=== PATIENT | male | born 1940 | race Caucasian/White ===

== ENCOUNTER → 2017-09-28 | Outpatient (CLI) | payer MEDICARE, BC ==
[~2017-09-28] MED LIST: ALBU0.63 NEB; HYDR-3534 PO; LEVO.05 PO; LYRI150C PO; PRED-503 PO; TAMS5CAP PO; VENTAER INH
--- NOTE | 2017-09-29 09:37 | RSPPFT ---
DATE OF PROCEDURE: 09/28/17 COMMENTS: Spirometry shows FVC is 2.1 at 50% of predicted, FEV1 of 1.7 at 53%, FEV1/FVC ratio is normal. Flow is decreased at FEF 25, FEF 50, FEF 75 and FEF 25-75. There is no response after acutely inhaled bronchodilator treatment. TLC is decreased. Diffusion capacity is normal when corrected for lung volumes. Flow volume loop indicates a restrictive pattern. IMPRESSION: 1. Moderately severe restrictive lung disease. 2. No response after bronchodilator treatment. 3. Decreased lung volumes. 4. Diffusion capacity is normal when corrected for lung volume. 5. Blood gases show normal oxygenation on room air.
== END ==
LOC: PHRSP 09:51
PROVIDERS: ATTEND Specialist
DX: J44.9 Chronic obstructive pulmonary disease, unspecified (principal)
CPT/HCPCS: 94060; 94726; 94729

== ENCOUNTER 2018-02-15 06:22 | Day surgery (SDC) | payer MEDICARE, BC ==
[~2018-02-15] VITALS: Ht 180.3 cm; Wt 97.0 kg
[2018-02-15] MEDS ORDERED: IOHEXOL 350 MG/ML 100 ML BTL (for Cath Lab) OTHER ONE (06:23)
[2018-02-15] MEDS ORDERED: NS 1000 ML @100 MLS/HR IV SCH (06:45)
[2018-02-15] MEDS ORDERED: diphenhydrAMINE HCL 50 MG CAP PO SCH (06:45)
[2018-02-15] MEDS ORDERED: ASPIRIN 325 MG TAB PO SCH (06:45)
[2018-02-15 06:59] VITALS: BP 157/76; PULSE 74; RESP 16; TEMP 98; O2SAT 96
[2018-02-15 07:10] LABS: BASOPHIL # 0.1 TH/MM3 (0-0.2); BASOPHIL % 1.2 % (0.0-2.0); EOSINOPHIL % 12.8 % (0.0-4.0); HEMATOCRIT 40.4 % (39.0-51.0); HEMOGLOBIN 13.7 GM/DL (13.0-17.0); LYMPH % 26.1 % (9.0-44.0); LYMPHOCYTE # 2.1 TH/MM3 (1.0-4.8); MEAN CELL VOLUME 93.5 FL (80.0-100.0); MEAN CORPUSCULAR HEMOGLOBIN 31.6 PG (27.0-34.0); MEAN CORPUSCULAR HGB CONC 33.8 % (32.0-36.0); MEAN PLATELET VOLUME 10.9 FL (7.0-11.0); MONOCYTE # 0.8 TH/MM3 (0-0.9); NEUT % 49.9 % (16.0-70.0); PLATELET COUNT 166 TH/MM3 (150-450); RED BLOOD COUNT 4.32 MIL/MM3 (4.50-5.90); RED CELL DISTRIBUTION WIDTH 13.9 % (11.6-17.2)
[2018-02-15] MEDS ORDERED: ALEN1TAB48 PO (07:20)
[2018-02-15] MEDS ORDERED: ACCU10TA2 PO (07:20)
[2018-02-15] MEDS ORDERED: LEVO.1 PO (07:21)
[2018-02-15] MEDS ORDERED: ISOS60TA PO (07:21)
[2018-02-15] MEDS ORDERED: HYDR-3580 PO (07:21)
[2018-02-15] MEDS ORDERED: TAMS5CAP PO (07:21)
[2018-02-15] MEDS ORDERED: METO1TAB42 PO (07:21)
[2018-02-15] MEDS ORDERED: PRAV40TA2 PO (07:21)
[2018-02-15] MEDS ORDERED: OMEGCAP PO (07:21)
[2018-02-15] MEDS ORDERED: NITR0.4S SL (07:21)
[2018-02-15] MEDS ORDERED: COQ-100C5 PO (07:21)
[2018-02-15] MEDS ORDERED: CALCTAB19 PO (07:21)
[2018-02-15] MEDS ORDERED: LYRI150C PO (07:21)
[2018-02-15] MEDS ORDERED: ASPI-183 PO (07:21)
[2018-02-15 07:23] LABS: PROTHROMBIN TIME - PATIENT 10.6 SEC (9.8-11.6)
[2018-02-15 07:38] LABS: BICARBONATE 29.8 MEQ/L (21.0-32.0); CALCIUM 8.5 MG/DL (8.5-10.1); CREATININE 0.91 MG/DL (0.60-1.30)
[2018-02-15] MEDS ORDERED: HEPARIN-NS/PF FLUSH BAG 2,000 ML IV FLUSH ONE (08:24)
[2018-02-15] MEDS ORDERED: MIDAZOLAM HCL 2 MG/2 ML VIAL ONE (08:50)
[2018-02-15] MEDS ORDERED: HEPARIN SODIUM - IV 10,000 UNITS/10 ML VIAL ONE (08:57)
[2018-02-15] MEDS ORDERED: BIVALIRUDIN 250 MG VIAL ONE (09:57)
[2018-02-15] MEDS ORDERED: CLOPIDOGREL 300 MG TAB ONE (09:57)
[2018-02-15] MEDS ORDERED: NIFEdipine 10 MG CAP ONE (10:43)
[2018-02-15] MEDS ORDERED: SODIUM CHLOR 0.9% 1000 ML INJ 1,000 ML IV SCH (11:10)
--- NOTE | 2018-02-15 11:10 | CATHPROC ---
[facility] HIS Report Study Information Study Number Admission Scheduled Start Study Start [id number] Feb 15 2018 6:22AM 02/15/2018 Feb 15 2018 8:44AM [place] [facility] Cardiac Catheterization Admit Source Facility Department Other [facility] - Service Operator Physician and Clinical Staff Initial Houston Graham Tree Girdler Angel RN, Luis Felipe Tree GirdlerDandy Russell,RN Recorder Leigh Rivero ,RT(R) ScrIdalia Martinez,RT(R) Procedures Performed Procedure Location (Site) Vessel Name Angiogram LV LV Ventricle Coronary Angiograms LCA Left Coronary Coronary Angiograms RCA Right Coronary Drug Eluting Inflatio LAD Mid Left Coronary IVUS Fem Art (right) Femoral Art L Heart Cath PTCA LAD Mid Left Coronary Wire insertion Fem Art (right) Femoral Art Equipment Time Charge Coordinator Description Size Mfg Part Number Used/Scraped NEGINTERRENCE, VASCULAR CLOSER [id number] 10:38 [employer] FR 6 Used SYSTEM *[id number] TRANSDUCER, TRUWAVE [id number] 08:50 FUENTES ROSENBAUM * Used W/STOCKCOCK *[id number] *[id number] [id number] *[id number] PIGTAIL ANG. 145 INFINITI [id number] CATHETER *[id number] *[id number] *[id number] 08:50 MEDLINE IND[employer]RIES PACK, CCL CUSTOM * Used *[id number] 08:50 plista PACER PEN, SKIN DUAL W/ RULER * Used *[id number] 10:05 MEDTRONIC BALLOON, 2.0 X 10MM EUPHORA 10MM Used *[id number] 10:18 MEDTRONIC STENT, 3.0 15MM EMMA 3.0 15MM Used *[id number] 09:57 [employer] MEDICAL 30 BETTYE INDEFLATOR Used *[id number] 08:50 [employer] MEDICAL SHEATH, FR6.5 PRELUDE 11CM FR 6.5 038ACT Used *[id number] 08:50 [employer] MEDICAL WIRE, 3MMJ .035 180CM 180CM Used *[id number] 08:50 NAMIC MANIFOLD, 4 PORT * Used *[id number] 09:55 NAMIC TUBING, HIGH PRESSURE 20" 20" Used *[id number] 08:50 NYCOMED OMNIPAQUE, 350 MG, 150ML 150ML [id number] Used [id number] 08:50 ALMAGUER MEDICAL BLANKET,WARM AIR CCL * Used *[id number] CATHETER, TANANA EYE GRAND RONDE TRIBES [id number] 10:15 [employer] Used IMAGING *[id number] Equipment Model, Serial, Lot Number and Expiration Data Description Model Number Serial Number Lot Number Expiration Date STENT, 3.0 15MM EMMA [id number] 10-04-2019 History: Current Medications Medication Dosage/Unit Route Frequency Last Date/Time Taken Statins (any) Beta Augustin ASA FLOMAX LYRICA NTG SL Synthroid History: Allergies Allergy Reaction penicillin G History: Risk Factors Family History of Hypertension Dyslipidemia Previous VT Previous Heart Failure Premature CAD Yes Yes No No No Prior Valve Prior PCI Prior CABG Surgery No No No Cerebrovascular Peripheral Artery Chronic Lung On Dialysis Diabetes Disease Disease Disease No No Yes Yes No History: Stress Tests Stress or Imaging Studies Performed Yes Standard Exercise Stress Test No Stress Echo No Stress Test SPECT Stress Test SPECT Result Stress Test SPECT Ischemia Risk/Extent Yes Positive High Stress Test CMR No Cardiac CTA Coronary Calcium Score No No History: Other Disease Selection Items CAD HTN History: Other Current Smoker No Labs Hgb (g/dl) Hct (%) WBC (l/cumm) Platelets (thousands) 11.60-17.00 35.00-51.00 4.00-11.00 150.00-450.00 13.7 40.7 8 166 Glucose (mg/dl) BUN (mg/dl) Creatinine (mg/dl) BUN:Creatinine (1:x) 74.00-106.00 7.00-18.00 0.50-1.30 10.00-20.00 98 11 0.9 12.2 Na (meq/l) K (meq/l) 136.00-145.00 3.50-5.10 142 3.6 INR (PTT:PT) 0.90-1.10 1 CPK-MB (ng/ML) 0.50-3.60 Not Drawn Medication Medication Total Dose (Bolus/Oral) Medication Total Dosage/Unit 1% XYLOCAINE 20 mL ANGIOMAX BOLUS 14.5 mL/hr FENTANYL 50 mcg HEPARIN 6000 units NTG (IC) 450 mcg OXYGEN 2 l/min PLAVIX 600 mg PROCARDIA 5 mg VERSED 2 mg Medications (Bolus/Oral) Medication Time Given Dosage/Unit Administered By Reason VERSED 02/15/2018 9:38:20 AM 2 mg Luis Felipe Ortiz RN 2 mg VERSED given in lab by Luis Felipe Ortiz RN in Left Antecubital via Peripheral IV. Ordered by Houston Fabian. 1% XYLOCAINE 02/15/2018 9:38:43 AM 20 mL Houston Fabian 20 mL 1% XYLOCAINE given in lab by Houston Fabian in Right Groin via Subcutaneous. Ordered by Houston Fabian. FENTANYL 02/15/2018 9:39:36 AM 50 mcg Luis Felipe Ortiz RN 50 mcg FENTANYL given in lab by Luis Felipe Ortiz RN in Left Antecubital via Peripheral IV. Ordered by Houston Schaeffer. HEPARIN 02/15/2018 9:41:41 AM 6000 units Houston Fabian 6000 units HEPARIN given in lab by Houston Fabian in Right Groin via Peripheral IV. Ordered by Houston Fabian. OXYGEN 02/15/2018 9:45:00 AM 2 l/min Luis Felipe Ortiz RN 2 l/min OXYGEN given in lab by Luis Felipe Ortiz RN via Nasal. Ordered by Houston Fabian. NTG (IC) 02/15/2018 9:45:31 AM 150 mcg Houston Fabian 150 mcg NTG (IC) given in lab by Houston Fabian via Intra-coronary. Ordered by Houston Fabian. PLAVIX 02/15/2018 9:57:53 AM 600 mg Luis Felipe Ortiz RN 600 mg PLAVIX given in lab by Luis Felipe Ortiz RN via Oral. Ordered by Houston Fabian. ANGIOMAX BOLUS 02/15/2018 10:03:06 AM 14.5 mL/hr Luis Felipe Ortiz RN 14.5 mL/hr ANGIOMAX BOLUS given in lab by Luis Felipe Ortiz RN via Peripheral IV. Pump/Drip Flow = 0 ml/hr using [Solution Name]. Ordered by Houston Fabian. NTG (IC) 02/15/2018 10:23:49 AM 150 mcg Houston Fabian 150 mcg NTG (IC) given in lab by Houston Fabian via Intra-coronary. Ordered by Houston Fabian. NTG (IC) 02/15/2018 10:31:41 AM 150 mcg Houston Fabian 150 mcg NTG (IC) given in lab by Houston Fabian via Intra-coronary. Ordered by Houston Fabian. PROCARDIA 02/15/2018 10:46:36 AM 5 mg Luis Felipe Ortiz RN 5 mg PROCARDIA given in lab by Luis Felipe Ortiz RN via Sublingual. Ordered by Houston Fabian. Medication (Drip) Medication Time Given Dosage/Unit Concentration/Unit Diluent (ml) Solution ANGIOMAX DRIP 02/15/2018 10:05:36 AM 1.753 mg/kg/hr 250 mg 50 NaCl .9 1.753 mg/kg/hr ANGIOMAX DRIP given in lab by Luis Felipe Ortiz RN via Peripheral IV. Pump/Drip Flow = 34 m l/hr using NaCl .9 with a concentration of 250 mg in 50 ml. Ordered by Houston Fabian. ANGIOMAX DRIP 02/15/2018 10:36:37 AM 1.753 mg/kg/hr 250 mg 50 NaCl .9 1.753 mg/kg/hr ANGIOMAX DRIP given in lab by Luis Felipe Ortiz RN via Peripheral IV. Pump/Drip Flow = 34.0 1 ml/hr using NaCl .9 with a concentration of 250 mg in 50 ml. Ordered by Houston Fabian. Discontinued at 02/15/2018 10:42. IV Solutions 02/15/2018 8:47:04 AM 50 mL (IV) NaCl .9 Patient arrived on IV Solutions in Left Antecubital via Peripheral IV. Pump/Drip Flow using NaCl .9. Initial Case Assessment Cardiovascular HR Rhythm NIBP Chest Pain 68 sr 165/87 0 Edema Present Skin color Skin None Normal Warm Dry Circulatory - Right Pulses Dorsalis Pedis Femoral 3 1 Scale (0,1,2,3,4,d) Circulatory - Left Pulses Dorsalis Pedis Femoral 3 1 Scale (0,1,2,3,4,d) Circulatory - Lower Extremities Color Lower Right Color Lower Left Normal Normal Neurological State Oriented to time-place- Alert Moves all extremities person Respiration - General Respiration Rate SpO2 (%) (B/min) 16 97 Final Case Assessment Cardiovascular HR Rhythm NIBP Chest Pain 68 sr 165/87 0 Edema Present Skin color Skin None Normal Warm Dry Circulatory - Right Pulses Dorsalis Pedis Femoral 3 1 Scale (0,1,2,3,4,d) Circulatory - Left Pulses Dorsalis Pedis Femoral 3 1 Scale (0,1,2,3,4,d) Circulatory - Lower Extremities Color Lower Right Color Lower Left Normal Normal Neurological State Oriented to time-place- Alert Moves all extremities person Respiration - General Respiration Rate SpO2 (%) (B/min) 16 97 Chronological Log Time Study Chronological Log 8:42:44 Patient arrived via Bed. 8:42:48 Patient Name, D.O.B, / Armband Verified By R.N. 8:46:52 Consent signed by the physician and the patient and verified by the Service Operator staff. 8:46:53 Pre-op and post- op instructions given; patient acknowledges understanding of instructions. 8:46:53 Verbal Stimulation=2 Physical Stimulation=2 Airway=2 Respiration=2 TOTAL=8. (0=absent, 1=li mited, 2=present) 8:46:58 Patient has been NPO for More than 6Hrs. 8:47:00 Skin Breakdown- rash right groin 8:47:01 Patient Warmer Placed on the Table. 8:47:03 Efren Prominences Protected 8:47:04 A # 20 IV was noted in the Antecubital (left). Grade = 0 8:47:04 Patient arrived on IV Solutions in Left Antecubital via Peripheral IV. Pump/Drip Flow using NaCl .9. 8:47:05 History and physical on the chart or being dictated. Assessment: Initial Case, HR=68 BPM, Rhythm=sr, FXOZ=630/87 mmhg, Chest Pain=0, Edema=None, [place] r=Normal, Skin = Warm, Dry Right Pulses: Michael Ped=3, Femoral=1 Left Pulses: Michael Ped=3, Femoral=1 8:47:08 Lower Right Extremities: Color=Normal Lower Left Extremities: Color=Normal Neurological: State=Alert, Ox3, REECE Respiration: Resp=16 B/min, SpO2=97 % Vitals capture started with the following parameters, Patient=Adult, Interval=5 min, Initial Pre mqvqs=967 mmHg, 8:47:12 Deflation Rate=5 mmHg, Cuff placed on Left Arm 8:48:19 HR=67 bpm, QNCP=351/87 mmhg, SpO2=97.0 %, Pain=0, Shannon=8, Melissa=2 8:52:55 Bilateral groins prepped with 2% chlorhexidine, and draped after a 3 minute waiting time. 8:52:56 HR=69 bpm, CGCJ=216/87 mmhg, SpO2=97.0 %, Resp=13 B/min, Pain=0, Shannon=8, Melissa=2 8:55:56 Reference ECG taken 8:57:57 HR=64 bpm, CZAS=062/87 mmhg, SpO2=98.0 %, Resp=10 B/min, Pain=0, Shannon=8, Melissa=2 8:59:10 MD paged 9:02:42 Pressure channel 1 zeroed. 9:02:58 HR=62 bpm, ALFI=802/89 mmhg, SpO2=96.0 %, Resp=19 B/min, Pain=0, Shannon=8, Melissa=2 9:08:48 HR=64 bpm, YZGD=358/87 mmhg, SpO2=95.0 %, Resp=15 B/min, Pain=0, Shannon=8, Melissa=2 9:12:56 HR=78 bpm, PDOQ=693/80 mmhg, SpO2=95.0 %, Resp=26 B/min, Pain=0, Shannon=8, Melissa=2 9:16:21 MD responded. ETA 15 minutes 9:17:59 HR=64 bpm, RYGF=091/89 mmhg, SpO2=97.0 %, Resp=14 B/min, Pain=0, Shannon=8, Melissa=2 9:23:00 HR=60 bpm, UEIB=987/79 mmhg, SpO2=96.0 %, Resp=16 B/min, Pain=0, Shannon=8, Melissa=2 9:27:01 MD arrived. 9:28:01 HR=66 bpm, VPWP=884/88 mmhg, SpO2=93.0 %, Resp=24 B/min, Pain=0, Shannon=8, Melissa=2 9:33:03 HR=66 bpm, OQAQ=613/84 mmhg, SpO2=93.0 %, Resp=20 B/min, Pain=0, Shannon=8, Melissa=2 Time Out. Correct patient, correct procedure, correct physician, power injector loaded with cont rast with surgical team 9:33:30 present. Time Out Concurred by MD and individual staff in procedure. 9:33:55 Case Start 9:38:04 HR=67 bpm, CPSA=896/89 mmhg, SpO2=95.0 %, Resp=16 B/min, Pain=0, Shannon=8, Melissa=2 9:38:20 2 mg VERSED given in lab by Luis Felipe Ortiz RN in Left Antecubital via Peripheral IV. Ordered Houston Thomas. 9:38:43 20 mL 1% XYLOCAINE given in lab by Houston Fabian in Right Groin via Subcutaneous. Ordered Houston Thomas. 9:39:36 50 mcg FENTANYL given in lab by Luis Felipe Ortiz RN in Left Antecubital via Peripheral IV. Order ed by Houston Fabian. 9:40:05 Access site was Right Femoral Artery. 9:41:27 A SHEATH, FR6.5 PRELUDE 11CM FR 6.5 was advanced into the Fem Art (right) using the Percutan eous technique. 9:41:41 6000 units HEPARIN given in lab by Houston Fabian in Right Groin via Peripheral IV. Ordered by Houston Fabian. A JL 4.0 INFINITI CATHETER FR 6 was advanced over a wire. OMNIPAQUE, 350 MG, 150ML 150ML was use d for 9:42:45 injections. 9:42:57 HR=63 bpm, BUDM=466/87 mmhg, SpO2=90.0 %, Resp=18 B/min, Pain=0, Shannon=8, Melissa=2 Recorded Pressure: Ao, HR=63, Condition=Condition 1 9:44:28 (Aorta) Ao 144/70/100 9:45:00 2 l/min OXYGEN given in lab by Luis Felipe Ortiz RN via Nasal. Ordered by Houston Fabian. 9:45:12 The LCA was injected and visualized at various angles. OMNIPAQUE, 350 MG, 150ML 150ML used. 9:45:31 150 mcg NTG (IC) given in lab by Houston Fabian via Intra-coronary. Ordered by Dima Fabian 9:47:58 HR=64 bpm, XHPV=508/68 mmhg, SpO2=96.0 %, Resp=15 B/min, Pain=0, Shannon=8, Melissa=2 After removing the current catheter a JR 4.0 INFINITI CATHETER FR 6 was advanced over a WIRE, 3 MMJ .035 180CM 9:48:58 180CM. 9:51:11 The RCA was injected and visualized at various angles. OMNIPAQUE, 350 MG, 150ML 150ML used. 9:52:04 Catheter was removed A PIGTAIL ANG. 145 INFINITI CATHETER FR 6 was advanced over a wire. OMNIPAQUE, 350 MG, 150ML 15 0ML was 9:52:46 used for injections. 9:53:01 HR=59 bpm, SMZL=546/67 mmhg, SpO2=92.0 %, Resp=21 B/min, Pain=0, Shannon=8, Melissa=2 Recorded Pressure: LV, HR=66, Condition=Condition 1 9:53:47 (Left Ventricle) LV 146/5/17 9:55:42 The LV was injected at 10 cc/sec for a total of 28. OMNIPAQUE, 350 MG, 150ML 150ML used. Recorded Pressure: LV, Ao, HR=62, Condition=Condition 1 9:56:53 (Left Ventricle) LV 139/5/15, (Aorta) Ao 140/66/98 9:57:11 Catheter was removed 9:57:53 600 mg PLAVIX given in lab by Luis Felipe Ortiz RN via Oral. Ordered by Houston Fabian. 9:58:00 HR=64 bpm, WOMF=316/85 mmhg, SpO2=96.0 %, Resp=21 B/min, Pain=0, Shannon=8, Melissa=2 A XBLAD 3.5 GUIDE CATHETER FR 6 was advanced over a wire. OMNIPAQUE, 350 MG, 150ML 150ML was ed for 10:00:46 injections. 10:03:01 HR=58 bpm, DXOW=442/79 mmhg, SpO2=96.0 %, Resp=16 B/min, Pain=0, Shannon=8, Melissa=2 14.5 mL/hr ANGIOMAX BOLUS given in lab by Luis Felipe Ortiz RN via Peripheral IV. Pump/Drip Flow = 0 ml/hr using 10:03:06 [Solution Name]. Ordered by Houston Fabian. 10:03:12 A WIRE, ATW MARKER 300CM 300CM was inserted via Fem Art (right). 1.753 mg/kg/hr ANGIOMAX DRIP given in lab by Luis Felipe Ortiz RN via Peripheral IV. Pump/Drip Flow = 34 ml/hr using 10:05:36 NaCl .9 with a concentration of 250 mg in 50 ml. Ordered by Houston Fabian. 10:08:06 HR=59 bpm, YHAA=008/69 mmhg, SpO2=98.0 %, Resp=13 B/min, Pain=0, Shannon=8, Melissa=2 10:09:43 Interventional wire has crossed the lesion A BALLOON, 2.0 X 10MM EUPHORA 10MM was inserted over WIRE, ATW MARKER 300CM 300CM via the Fem A rt 10:10:51 (right). A BALLOON, 2.0 X 10MM EUPHORA 10MM over a WIRE, ATW MARKER 300CM 300CM in the LAD Mid was infla pilar using 10:12:32 a 30 BETTYE INDEFLATOR at 8 bettye for 60 sec. 10:13:03 HR=55 bpm, XOMH=702/73 mmhg, SpO2=95.0 %, Resp=45 B/min, Pain=0, Shannon=8, Melissa=2 A BALLOON, 2.0 X 10MM EUPHORA 10MM over a WIRE, ATW MARKER 300CM 300CM in the LAD Mid was infla pilar using 10:14:22 a 30 BETTYE INDEFLATOR at 8 bettye for 60 sec. 10:15:40 Balloon Removed. A STENT, 3.0 15MM EMMA 3.0 15MM was advanced through a XBLAD 3.5 GUIDE CATHETER FR 6 over a WIR E, ATW 10:17:46 MARKER 300CM 300CM. 10:18:02 HR=57 bpm, LGEA=528/81 mmhg, SpO2=99.0 %, Resp=21 B/min, Pain=0, Shannon=8, Melissa=2 A STENT, 3.0 15MM EMMA 3.0 15MM was deployed using a 30 BETTYE INDEFLATOR at 14 atmospheres for 12 seconds in 10:20:33 the LAD Mid. 10:21:10 Delivery device removed 10:22:24 Activated Clotting Time Drawn 10:23:07 HR=56 bpm, HUIO=795/71 mmhg, SpO2=98.0 %, Resp=37 B/min, Pain=0, Shannon=8, Melissa=2 10:23:49 150 mcg NTG (IC) given in lab by Houston Fabian via Intra-coronary. Ordered by Jesica Fabian af. 10:28:08 HR=60 bpm, XPIU=097/77 mmhg, SpO2=96.0 %, Resp=22 B/min, Pain=0, Shannon=8, Melissa=2 10:29:25 An CATHETER, [employer] IMAGING was advanced through the lesion. Images saved onto IVUS hard drive 10:30:31 IVUS in progress using CATHETER, TANA[employer] IMAGING 10:31:03 IVUS catheter removed 10:31:08 ATW Wire removed 10:31:41 150 mcg NTG (IC) given in lab by Houston Fabian via Intra-coronary. Ordered by Jesica Fabian af. 10:31:45 ACT (Normal Range 90-180) = 342 10:33:01 HR=61 bpm, LIOB=579/73 mmhg, SpO2=99.0 %, Resp=9 B/min, Pain=0, Shannon=8, Melissa=2 10:33:53 Catheter was removed 10:35:20 An injection in the Fem Art (right) was made through the SHEATH, FR6.5 PRELUDE 11CM FR 6.5. 1.753 mg/kg/hr ANGIOMAX DRIP given in lab by Luis Felipe Ortiz RN via Peripheral IV. Pump/Drip Flow = 34.01 ml/hr using 10:36:37 NaCl .9 with a concentration of 250 mg in 50 ml. Ordered by Houston Fabian. Discontinued at 02/15 10:42. 10:36:46 STARCLOSE, VASCULAR CLOSER SYSTEM FR 6 placement in the Fem Art (right) 10:38:47 HR=58 bpm, MZIV=801/86 mmhg, SpO2=94.0 %, Resp=13 B/min, Pain=0, Shannon=8, Melissa=2 10:43:07 HR=62 bpm, SABB=813/93 mmhg, SpO2=95.0 %, Resp=30 B/min, Pain=0, Shannon=8, Melissa=2 10:46:23 Case End Assessment: Final Case, HR=68 BPM, Rhythm=sr, NYOF=696/87 mmhg, Chest Pain=0, Edema=None, Color =Normal, Skin = Warm, Dry Right Pulses: Michael Ped=3, Femoral=1 Left Pulses: Michael Ped=3, Femoral=1 10:46:29 Lower Right Extremities: Color=Normal Lower Left Extremities: Color=Normal Neurological: State=Alert, Ox3, REECE Respiration: Resp=16 B/min, SpO2=97 % 10:46:36 5 mg PROCARDIA given in lab by Luis Felipe Ortiz RN via Sublingual. Ordered by Houston Fabian. 10:46:51 Catheter(s) removed without difficulty 10:46:57 Sterile dressing applied to site 10:46:58 No case complications noted. 10:47:00 Cine recording checked. 10:47:02 Bedside Report will be given. 10:47:13 Implantable Device card placed in patient's chart. 10:47:18 A Left Heart Cath was performed. 10:48:06 HR=60 bpm, SXEJ=190/88 mmhg, SpO2=95.0 %, Resp=18 B/min, Pain=0, Shannon=8, Melissa=2 10:53:03 HR=62 bpm, KEFO=179/84 mmhg, SpO2=92.0 %, Resp=18 B/min, Pain=0, Shannon=8, Melissa=2 10:57:44 Vitals capture stopped. 11:01:11 Patient moved to [facility] End Study - Contrast Media Used In Study Contrast Total Opened (mL) Total Used (mL) Total Wasted (mL) Omnipaque 178 178 0 End Study - Maximum Contrast Load Max Contrast Load (mL) 538.9 End Study - Radiation Exposure Fluoro Time (minutes) 8.8 End Study - Sheaths Sheaths Pulled By Sheath Hold Time (min) Houston Fabian End Study - Patient Disposition Complications Transferred To Interventional Outcome No Critical Care Bed successful
[2018-02-15] MEDS ORDERED: MISC INFORMATION XX ONE (11:15)
[2018-02-15] MEDS ORDERED: ATROPINE SULFATE 1 MG/ML VIAL IV PUSH PRN (11:15)
[2018-02-15] MEDS ORDERED: ACETAMINOPHEN 500 MG CPLT PO PRN (11:15)
[2018-02-15] MEDS ORDERED: ONDANSETRON HCL 4 MG/2 ML VIAL IV PUSH PRN (11:15)
[2018-02-15] MEDS ORDERED: BACITRACIN OINT 0.9 GM PKT TOP ONE (11:15)
[2018-02-15] MEDS ORDERED: SODIUM CHLOR 0.9% 250 ML INJ 250 ML IV PRN (11:15)
[2018-02-15] MEDS ORDERED: ASPI81TA23 PO (11:20)
[2018-02-15] MEDS ORDERED: LISINOPRIL 20 MG TAB PO ONE (11:30)
[2018-02-15] MEDS ORDERED: NITROGLYCERIN 2% OINT 1 GM PACKET TOPICAL ONE (11:45)
[2018-02-15] MEDS ORDERED: CLOPIDOGREL 300 MG TAB PO ONE (11:45)
[2018-02-15] MEDS ORDERED: MIDAZOLAM HCL 2 MG/2 ML VIAL IV ONE (11:45)
--- NOTE | 2018-02-15 11:54 | MA ---
cc: Houston Fabian MD, Gohar S MD DATE: 02/15/2018 PROCEDURES PERFORMED: 1. Left heart catheterization. 2. Coronary arteriogram. 3. Left ventriculogram. 4. Percutaneous transluminal balloon angioplasty of the mid 80% left anterior descending disease followed by stenting using a 3.0 x 15 mm drug-eluted Resolute [place] stent reducing it to -10% angiographically. 5. Intravascular ultrasound evaluation post-stenting. 6. Right femoral arteriogram. 7. Right femoral arteriotomy site closure using a StarClose device. MACHINIST BENCH: Rogelio Fabian MD CLAIM ADJUSTER: Idalia Kyle RT (R) INDICATION: Progressive angina equivalent symptoms and a stress nuclear study showing moderate to severe anterior and lateral wall ischemia with transient ischemic dilatation. Because of the high risk criteria of the stress test and because of his progressive symptoms despite medical therapy, he was advised to proceed with a cardiac catheterization. He had a cardiac catheterization about 5 years ago with borderline significant mid LAD disease that was treated medically at that time; however, he is failing medical therapy and now. EQUIPMENT USED: A 6-Swazi short sheath. A 0.035 J guidewire. A 6-Swazi JL4, JR4 and pigtail diagnostic catheters. A 6-Swazi XBLAD 3.5 guide with no side holes. A 0.014 ATW long marker wire. A 2.0 x 10 Euphora compliant balloon. A 3.0 x 15 drug-eluting Resolute [place] stent. Intravascular ultrasound catheter from [employer]. DESCRIPTION OF PROCEDURE: After obtaining informed consent, the right groin was prepped in the usual sterile fashion, and 15 mL of 1% lidocaine were used for local anesthesia. Using a modified Seldinger technique, the right femoral artery was cannulated and a 6-Swazi short sheath was inserted in the right femoral artery. Using the above-mentioned diagnostic catheters, selective coronary angiograms were performed. This was followed by left ventriculogram performed in the GOSS view at 30 degree angle. This was followed by percutaneous revascularization of the mid LAD, of which a separate description will followup. At the end of the procedure, right femoral system was injected revealing no significant disease, and a StarClose device was applied achieving adequate hemostasis. The patient tolerated the procedure well without acute complication at the time of dictation. CARDIAC CATHETERIZATION FINDINGS: HEMODYNAMICS: Aortic pressure was 140/70 mmHg, mean aortic pressure was 93 mmHg. There was no gradient across the aortic valve. Left ventricular end diastolic pressure was 18 mmHg. Left ventriculogram revealed adequate wall motion, normal systolic function, ejection fraction visual estimate is around 60-65%. There was trace mitral regurgitation noted. Right coronary artery with right sinus of Valsalva, and this was a dominant vessel. This had a mid bridging-like phenomena with no compromisation of distal flow. The PDA had ostial 30-40% stenosis and 30% disease in the mid portion. Mid RV branch showed minimal irregularities of less than 10%. Left main artery with left sinus of Valsalva. This had mild distal 10-20% stenosis. Left circumflex artery branched from the left main artery, had a proximal to mid 20-30% stenosis. It gave a big OM branch from the mid portion that had a proximal 30-40% diseased and minimal irregularities of less than 10%. Left circumflex extended in the AV groove to give a small PLV distally, and the whole system had minimal irregularities of less than 20%. An AV groove artery had minimal irregularities of less than 20%. Left anterior descending artery branched from the left main artery, had diffuse somewhat calcified plaque in the proximal to midportion region between 20-30%. The mid area had a 70-80% long plaque noted, and this was stented in this procedure. From that area, originated the diagonal branch that had mild irregularities of less than 10%. The LAD had diffuse mid to distal disease ranging between 30-40%. It extended distally to wrap around the apex with minimal irregularities. It gave a big septal trunk that had an ostial 20% stenosis. It gave other small diagonal septal branches that had mild irregularities of less than 20%. CONCLUSION OF THE CARDIAC CATHETERIZATION: 1. Significant mid left anterior descending disease, stented in this procedure. 2. Mild left main disease. 3. Mild diffuse left circumflex system. 4. Mild dominant right coronary artery disease with mild to moderate disease of the ostium of the posterior descending artery and mid RCA bridging with no compromisation of distal flow. 5. Normal left ventricular systolic function. 6. Elevated left ventricular end diastolic pressure at 18 mmHg. It was decided then to proceed with revascularization of the mid LAD. REVASCULARIZATION OF MID LEFT ANTERIOR DESCENDING: An XBLAD 3.5 guide was advanced over the 0.035 J wire, cannulating the left main. Then, a 0.014 ATW long marker wire was advanced and placed in the distal portion of the LAD. Predilatation of the mid lesion with a 2.0 x 10 mm Euphoria balloon was done twice with inflations up to 8 atmosphere 1 minute each, reducing the stenosis to 50% residual, after which stenting using a 3.0 x 15 mm drug-eluted Len Resolute stent was performed, reducing the stenosis to -10% angiographically. Intravascular ultrasound evaluation revealed that the stent was well deployed with no distal or proximal edge dissections, good symmetry and a minimum diameter of 2.5 mm. It was decided to accept these results. The LAD had diffuse proximal disease ranging between 20-40% by IVUS. MD AUDELIA Reyes/JAKE , 11:04 AM , 11:53 AM
[2018-02-15] MEDS ORDERED: BIVALIRUDIN INJ 250 MG in SODIUM CHLORIDE 0.9% INJ 50 ML IV ONE (12:00)
--- NOTE | 2018-02-15 12:39 | EKG ---
Date Performed: 02/15/2018 Time Performed: 07:34:16 PTAGE: 77 years EKG: Sinus rhythm with 1st degree A-V block Abnormal ECG PREVIOUS TRACING : 09/10/2016 11.27 [place] interval has increased since the prior tracing. DOCTOR: Gary Lomeli Interpretating Date/Time 02/15/2018 12:37:31
[2018-02-15] MEDS ORDERED: NIFEdipine 10 MG CAP PO ONE (17:45)
== END 2018-02-15 17:36 | disposition home or self-care (01) ==
LOC: HDIC 06:22 → HDOC 06:22
PROVIDERS: ATTEND Internal Medicine Interventional Cardiology
DX: I25.10 Atherosclerotic heart disease of native coronary artery without angina pectoris (principal); I25.83 Coronary atherosclerosis due to lipid rich plaque; I10 Essential (primary) hypertension; G90.50 Complex regional pain syndrome I, unspecified; I73.9 Peripheral vascular disease, unspecified; Z79.82 Long term (current) use of aspirin; Z79.01 Long term (current) use of anticoagulants
CPT/HCPCS: 80048; 85002; 85025; 85610; 85730; 92928; 92978; 93005; 93458; 99152; 99153; C1725; C1753; C1760; C1769; C1874; C1887; C1893; G0269; J0583; J1644; J2250; J3010; J7030; Q9967